=== PATIENT | female | born 1975 | race Caucasian/White ===

== ENCOUNTER 2019-06-16 06:06 | Observation (INO) | payer BC ==
--- NOTE | 2019-06-16 06:51 | Anesthesia Day of Surgery ---
Anesthesia Day of Surgery - Day of Surgery Patient Examined: Yes Patient H&P Reviewed: Yes Patient is NPO: Yes
--- NOTE | 2019-06-16 06:51 | Anesthesia Consultation ---
Anesthesia Consult and Med Hx Date of service: 06/16/19 - Airway Anesthetic Teeth Evaluation: Good ROM Head & Neck: Adequate Mental/Hyoid Distance: Adequate Mallampati Class: Class II Intubation Access Assessment: Probably Good - Pulmonary Exam CTA: Yes - Cardiac Exam Cardiac Exam: RRR - Pre-Operative Health Status ASA Pre-Surgery Classification: ASA1 Proposed Anesthetic Plan: General - Pulmonary Hx Asthma: No - Cardiovascular System Hx Hypertension: No - Central Nervous System Hx Seizures: No Hx Psychiatric Problems: No - Endocrine Hx Renal Disease: No Hx Hypothyroidism: No Hx Hyperthyroidism: No - Hematic Hx Anemia: No Hx Sickle Cell Disease: No - Other Systems Hx Alcohol Use: No
[2019-06-16] MEDS ORDERED: ONDANSETRON 4 MG/2 ML INJ IV PRN ×2 (06:53→09:30)
[2019-06-16] MEDS ORDERED: HYDROcodone/ACETAMINOPHEN 5-325 MG TAB PO PRN (06:53)
[2019-06-16] MEDS ORDERED: FAMOTIDINE 20 MG TAB PO NR (07:00)
[2019-06-16] MEDS ORDERED: LACTATED RINGERS 1,000 ML IV SCH (07:00)
[2019-06-16] MEDS ORDERED: CELECOXIB 200 MG CAP PO NR (07:00)
[2019-06-16] MEDS ORDERED: MIDAZOLAM 2 MG/2 ML INJ IV NR (07:00)
[2019-06-16] MEDS ORDERED: GABAPENTIN 300 MG CAP PO NR (07:00)
[2019-06-16] MEDS ORDERED: BUPIVACAINE-EPINEPHRINE/PF 0.5%-1:200,000 (30 ML) VIAL INFILTRATI ONE (07:36)
[2019-06-16] MEDS ORDERED: BUPIVACAINE/PF (0.5%) 5 MG/1 ML 30 ML VIAL INFILTRATI ONE ×2 (07:36→09:08)
[2019-06-16] MEDS ORDERED: LIDOCAINE MPF (2%) 20 MG/1 ML VIAL 5 ML ONE (07:46)
[2019-06-16] MEDS ORDERED: ROCURONIUM 50 MG/5 ML INJ IV ONE (07:46)
[2019-06-16] MEDS ORDERED: MIDAZOLAM 2 MG/2 ML INJ ONE (07:47)
[2019-06-16] MEDS ORDERED: fentaNYL 100 MCG/2 ML INJ ONE (07:47)
[2019-06-16] MEDS ORDERED: propofoL 200 MG/20 ML VIAL IV ONE (07:47)
[2019-06-16] MEDS ORDERED: ceFAZolin/STERILE WATER 2 GM/20 ML SYRINGE IV NR (08:00)
[2019-06-16] MEDS ORDERED: GLYCOPYRROLATE 0.4 MG/2 ML INJ ONE ×2 (08:49→09:24)
[2019-06-16] MEDS ORDERED: HYDROmorphone 1 MG/1 ML INJ ONE (08:49)
[2019-06-16] MEDS ORDERED: KETOROLAC 30 MG/1 ML INJ ONE (08:49)
[2019-06-16] MEDS ORDERED: NEOSTIGMINE 10MG/10 ML INJ MDV ONE (08:49)
[2019-06-16] MEDS ORDERED: METOCLOPRAMIDE 10 MG/2 ML INJ ONE (08:49)
[2019-06-16] MEDS ORDERED: ONDANSETRON 4 MG/2 ML INJ ONE (08:49)
[2019-06-16] MEDS ORDERED: dexAMETHasone 20 MG/5 ML VIAL ONE (08:49)
[2019-06-16] MEDS ORDERED: LACTATED RINGERS 1,000 ML ONE (09:22)
[2019-06-16] MEDS ORDERED: MORPHINE 4 MG/1 ML INJ IV PRN ×2 (09:30→20:16)
[2019-06-16] MEDS ORDERED: ceFAZolin/NS 1 GM/50 ML 1 GM/50 ML BAG IV SCH (10:00)
--- NOTE | 2019-06-16 10:08 | Operative Report ---
PREOPERATIVE DIAGNOSIS: Rule out recurrent ventral hernia. POSTOPERATIVE DIAGNOSIS: Multiloculated complex recurrent ventral hernia with incarcerated omentum. PROCEDURE: 1. Diagnostic laparoscopy. 2. Dissection of incarcerated omentum. 3. Conversion to open recurrent ventral hernia repair with mesh. SURGEON: Murray Fairchild MD CREDIT CARD CLERK: Dr. Hunt. ANESTHESIA: General. ESTIMATED BLOOD LOSS: Minimal. DRAINS: None. COMPLICATIONS: None. DESCRIPTION OF PROCEDURE: The patient was taken to the operating room, prepped and draped in usual sterile fashion. Veress needle was inserted and CO2 insufflation begun. A 5 mm trocar was inserted and camera inserted. All other trocars were inserted under direct visualization. Inspection of the area revealed a complex multiloculated recurrent ventral hernia. Pictures of these were taken. Omentum was also noted to be incarcerated within one of the loculated fascial defects. A Harmonic scalpel was used to dissect the omentum and free it from the hernia sac. Upon inspection of the multiloculated complex area, it was determined that it would be best for the patient to convert to open repair to reduce the chances of recurrence. Incision was then made over the incisional hernia. Dissection was carried down to the fascia. The multiple hernia sacs were dissected free from the fascia and some were sent as specimen. The fascia was then grasped with Nick's and subcutaneous retracted with ___. The entire subcutaneous area where the fascia was freed up to reduce tension upon closure. The rest of the undersurface of the peritoneum around the hernia was palpated and no other loculations or weaknesses noted. The fascia was then closed primarily with interrupted #1 Nurolon sutures. Subcutaneous tissues were then irrigated and dried. A Marlex mesh was then on laid over the repair and secured to the fascia with interrupted 2-0 Vicryl suture. Once again, subcutaneous was irrigated and dried. Checked for hemostasis and noted to be dry. Subcutaneous was then closed over the mesh with interrupted 3-0 Vicryl suture. The skin was closed with cedric. The trocar sites were closed with subcuticular 4-0 Vicryl. A 0.5% Marcaine with epinephrine was infiltrated over the area for postoperative pain relief. Fluffs and pressure dressing were applied. Abdominal binder will also be placed. The patient tolerated the procedure well and left the OR in stable condition. [facility]# [id number] FP/NTS
--- NOTE | 2019-06-16 10:13 | Post Anesthesia Evaluation ---
- Post Anesthesia Evaluation Patient Participated: Yes Airway Patent: Yes Stable Respiratory Function: Yes Temp > 96.8F: Yes Pain Manageable: Yes Adequeate Hydration: Yes Anesthesia Complications: No
[2019-06-16] MEDS: HYDROmorphone 1 MG/1 ML INJ IV PRN ×2 (10:25→10:35)
[2019-06-16] MEDS: D5W/0.45% NACL 1,000 ML IV SCH ×2 (15:00→20:40)
[2019-06-16] MEDS: ceFAZolin/NS 1 GM/50 ML 1 GM/50 ML BAG IV SCH (17:04)
[2019-06-17] MEDS: ceFAZolin/NS 1 GM/50 ML 1 GM/50 ML BAG IV SCH (01:05)
--- NOTE | 2019-06-17 11:15 | Progress Note ---
Assessment and Plan POD # 1 Pt c/o incisional pain but IV narcotic relieve is being limited at this time secondary to low BP. neg flatus. otherwise feeling well Abd soft. dressings dry. minimal BS at thils time stable attempt cl liq diet supplement IV narcotics with po norco and aleve ambulate down halls Selected Entries 06/17/19 07:24 Temperature 98.2 F Pulse Rate 51 L Respiratory 18 Rate Blood Pressure 94/44 Objective Vital Signs - 12hr 06/17/19 06/17/19 06/17/19 00:27 04:47 07:24 Temperature 97.8 F 97.4 F L 98.2 F Pulse Rate 53 L 47 L 51 L Respiratory 16 16 18 Rate Blood Pressure 85/41 88/48 94/44 O2 Sat by Pulse 96 97 98 Oximetry
[2019-06-17] MEDS ORDERED: IBUPROFEN 600 MG TAB PO PRN (11:16)
[2019-06-17] MEDS: D5W/0.45% NACL 1,000 ML IV SCH ×2 (11:26→20:51)
[2019-06-17] MEDS: HYDROcodone/ACETAMINOPHEN 5-325 MG TAB PO PRN (18:25)
[2019-06-18] MEDS: HYDROcodone/ACETAMINOPHEN 5-325 MG TAB PO PRN (00:50)
[2019-06-18] MEDS: D5W/0.45% NACL 1,000 ML IV SCH (09:20)
--- NOTE | 2019-06-18 10:56 | Progress Note ---
Assessment and Plan POD # 2 Pt feeling much better. had some nausea and bloating when beginning cl liqs yesterday but now eros fine. + flatus Abd soft, non tender stable reg diet d/c today if diet eros rto this Wed Objective Vital Signs - 12hr 06/18/19 06/18/19 06/18/19 00:55 05:51 07:00 Temperature 98.0 F 98.0 F Pulse Rate 66 56 L Respiratory 16 18 20 Rate Blood Pressure 115/65 95/50 O2 Sat by Pulse 98 97 Oximetry 06/18/19 07:38 Temperature 98.0 F Pulse Rate 56 L Respiratory 18 Rate Blood Pressure 111/56 O2 Sat by Pulse 96 Oximetry
--- NOTE | 2019-06-18 10:58 | Discharge Summary ---
Short Stay Discharge Plan Activity: other (september d/c today if reg diet eros. no lifting over 5 lbs x 3 wks. keep dressings dry x 5 days. Abd binder x 3 weeks) Diet: regular Wound: keep clean and dry Additional Instructions: aleve I po q 8 prn for breakthrough pain. surfak I po q am x 3 Follow up with: JOSE FOSTER MD [Staff Physician] - 06/23/19
--- NOTE | 2019-06-18 12:51 | Discharge Summary ---
DISCHARGE DIAGNOSIS: Multiloculated and complex recurrent incisional hernia with incarcerated omentum. PROCEDURE WHILE IN HOSPITAL: 1. Diagnostic laparoscopy. 2. Open exploratory laparotomy with incisional hernia repair with mesh. HOSPITAL COURSE: The patient is a pleasant 44-year-old female who presented to the office with a chief complaint of palpable ventral mass and abdominal pain. The patient had had a previous ventral hernia repair at [facility] a couple of years ago. At that time, physical exam revealed a recurrent ventral hernia. The patient was admitted at this time for repair, which she underwent without incident. Her postoperative course has been essentially unremarkable. Currently, the patient is postoperative day #2 and feeling much better. Her pain is now much better controlled and she is now able to tolerate a liquid diet without any further evidence of nausea or bloating. Her abdomen is soft and nontender. Dressings are clean and dry. The patient will thus be advanced to regular diet this morning and will tentatively be discharged today if her diet is well tolerated. The patient has been instructed to call me immediately if she has any evidence of nausea, vomiting, abdominal pain, or fever. She has been instructed to do no lifting over 5 pounds for the next 3-4 weeks and to keep her abdominal binder for the next 3 weeks. Also keep her dressings dry for another 5 days. The patient will be followed up in the office this Wednesday for further followup and evaluation. The patient has been given, Humble p.o. for pain as well as Surfak stool softer for the next few days. JOB# [id number] FP/NTS
[2019-06-18 15:49] VITALS: BP 102/55
== END 2019-06-18 16:15 | disposition home or self-care (01) ==
LOC: OR 06:06 → 3A 09:30 → 3B-SURG 14:25
PROVIDERS: ADMIT Surgery; ATTEND Surgery
DX: K43.2 Incisional hernia without obstruction or gangrene (principal)
CPT/HCPCS: 49657; 81025; 88302; 96365; 96366; 96375; C1781; G0378; J0690; J1100; J1170; J1885; J2250; J2405; J2704; J2710; J2765; J3010; J7120